=== PATIENT | male | born 1990 | race Caucasian/White ===

== ENCOUNTER 2017-07-12 20:42 | Emergency (ER) | payer OTHER ==
[~2017-07-12] VITALS: Ht 167.6 cm; Wt 44.5 kg
[2017-07-13 05:30] VITALS: BP 118/76
== END 2017-07-13 05:31 | disposition home or self-care (01) ==
LOC: ER 23:16
DX: K29.00 Acute gastritis without bleeding (principal); K04.7 Periapical abscess without sinus
CPT/HCPCS: 99283

== ENCOUNTER 2019-11-24 15:39 | Emergency (ER) | payer MEDICAID, OTHER ==
[~2019-11-24] VITALS: Ht 172.7 cm; Wt 52.0 kg
[2019-11-24] MEDS ORDERED: ACETAMINOPHEN 325MG TABLET PO ONE (16:45)
[2019-11-24] MEDS ORDERED: CLINDAMYCIN HCL 150MG CAPSULE PO ONE (16:45)
[2019-11-24 17:25] VITALS: BP 112/70
== END 2019-11-24 17:37 | disposition home or self-care (01) ==
LOC: ER 15:39
DX: M27.2 Inflammatory conditions of jaws (principal); R68.84 Jaw pain
CPT/HCPCS: 93005; 99283